=== PATIENT | female | born 1970 | race Caucasian/White ===

== ENCOUNTER 2016-12-25 11:20 | Emergency (ER) | payer SELFPAY ==
[2016-12-25 12:34] VITALS: BP 136/79
[2016-12-25] MEDS ORDERED: Albuterol/Ipratropium NEB.SOL* Albuterol 2.5 MG/Ipratropium 0.5 MG 3 ML INH ONE (13:16)
--- NOTE | 2016-12-25 13:17 | UC ---
Throat Pain/Nasal Chad HPI - HPI Summary HPI Summary: body aches chills, worsening chest congestion, sob and wheezing - History of Current Complaint Chief Complaint: UCRespiratory Stated Complaint: BODY ACHES,SINUS Time Seen by Provider: 12/25/16 13:08 Hx Obtained From: Patient Hx Last Menstrual Period: 2 WEEKS AGO ?: No Onset/Duration: Gradual Onset - over 5 days Severity: Moderate Pain Intensity: 6 Pain Scale Used: 0-10 Numeric Cough: Nonproductive Associated Signs & Symptoms: Positive: Wheezing, Sinus Discomfort, Nasal Discharge Related History: Smoking - Allergies/Home Medications Allergies/Adverse Reactions: Allergies Allergy/AdvReac Type Severity Reaction Status Date / Time Penicillins Allergy Hives Verified 12/25/16 12:25 Home Medications: Home Medications Acetaminophen [Acetaminophen Extra Stren] 2 tab PO TID PRN 12/25/16 [History Confirmed 12/25/16] Gabapentin CAP(*) [Neurontin 100 mg CAP(*)] 1 tab PO TID 12/25/16 [History Confirmed 12/25/16] Ibuprofen TAB* [Advil TAB*] 2 tab PO TID PRN 12/25/16 [History Confirmed ] oxyCODONE SR TAB(*) [Oxycontin 40 mg (*)] 1 tab PO TID PRN 12/25/16 [History Confirmed 12/25/16] PMH/Surg Hx/FS Hx/Imm Hx Previously Healthy: Yes Endocrine History Of: Denies: Diabetes, Thyroid Disease Cardiovascular History Of: Denies: Cardiac Disorders, Hypertension Respiratory History Of: Denies: COPD, Asthma GI/ History Of: Denies: Ulcer - Surgical History Surgical History: Yes Surgery Procedure, Year, and Place: 2011 Spinal Surgery - PLACEMENT OF STIMULATOR FOR BACK PAIN - FELL 10 FEET OFF A LADDER. - Family History Family History: denies cardiovascular issues in family lineage - Social History Occupation: Employed Full-time - At [employer] Lives: With Family Alcohol Use: Rare Substance Use Type: None Smoking Status (MU): Current Every Day Smoker Amount Used/How Often: 1/2 - n ppd Length of Time of Smoking/Using Tobacco: 20+ YEARS Have You Smoked in the Last Year: Yes Cessation Counseling: Counseled 3+Min - 10 Min Review of Systems Constitutional: Chills, Fatigue Skin: Negative Eyes: Negative ENT: Nasal Discharge Respiratory: Cough Cardiovascular: Negative Gastrointestinal: Negative Genitourinary: Negative Motor: Negative Neurovascular: Negative Musculoskeletal: Negative Neurological: Negative Psychological: Negative All Other Systems Reviewed And Are Negative: Yes Physical Exam Triage Information Reviewed: Yes Appearance: No Pain Distress, Well-Nourished, Ill-Appearing - mild Vital Signs: Initial Vital Signs Temp 98.2 F 12/25/16 12:28 Pulse 75 12/25/16 12:28 Resp 16 12/25/16 12:28 BP 136/79 12/25/16 12:28 Pulse Ox 100 12/25/16 12:28 Vital Signs Reviewed: Yes Eye Exam: Normal Eyes: Positive: Conjunctiva Clear ENT Exam: Normal ENT: Positive: Normal ENT inspection, Hearing grossly normal, Pharynx normal, Nasal congestion, Nasal drainage. Negative: TMs normal, Tonsillar swelling, Tonsillar exudate, Trismus, Muffled/hoarse voice Dental Exam: Normal Neck exam: Normal Neck: Positive: Supple, Nontender, No Lymphadenopathy Respiratory: Positive: Chest non-tender, No respiratory distress, No accessory muscle use, Wheezing Cardiovascular Exam: Normal Cardiovascular: Positive: RRR, No Murmur, Pulses Normal, Brisk Capillary Refill Musculoskeletal Exam: Normal Musculoskeletal: Positive: Strength Intact, ROM Intact, No Edema Neurological Exam: Normal Neurological: Positive: Alert, Muscle Tone Normal Psychological Exam: Normal Psychological: Positive: Normal Response To Family Skin Exam: Normal Throat Pain/Nasal Course/Dx - Course Assessment/Plan: prednisone, zithromax, albuterol, smoking cesation information , follow with Aniya Hollis and bottle hop - Differential Dx/Diagnosis Differential Diagnosis/HQI/PQRI: Influenza, Laryngitis, Pharyngitis, Sinusitis, URI Provider Diagnoses: bronchitis, nicotine dependant Discharge - Discharge Plan Condition: Stable Disposition: HOME Prescriptions: Albuterol HFA INHALER* [Ventolin HFA Inhaler*] 2 puff INH Q6H PRN #1 mdi PRN Reason: chest tightness/wheeze Azithromycin TAB* [Zithromax TAB (Z-SIMONE) 250 mg #6 tabs] 250 mg PO DAILY #3 tab Nicotine Inhaler* 10 mg INH Q2H PRN #1 box PRN Reason: nicotine craving predniSONE TAB* [Deltasone TAB*] 10 mg PO DAILY #18 tab Patient Education Materials: How to Stop Smoking (ED), Cigarette Smoking and Your Health (GEN), How to Use a Metered-Dose Inhaler (ED), Acute Bronchitis (ED) Forms: *Work Release Referrals: [facility] PHYSICIAN REFERRAL [Outside] - 2 Weeks No Primary Care Phys,NOPCP [Primary Care Provider] -
[2016-12-25] MEDS ORDERED: Azithromycin TAB* 250 MG PO ONE ×2 (14:01→14:02)
[2016-12-25] MEDS ORDERED: predniSONE TAB* 20 MG PO ONE ×2 (14:03)
[2016-12-25] MEDS ORDERED: Albuterol HFA INHALER* 8 gm MDI INH ONE (14:04)
== END 2016-12-25 14:35 | disposition home or self-care (01) ==
LOC: UCEAST 11:20
DX: J40 Bronchitis, not specified as acute or chronic (principal); F17.210 Nicotine dependence, cigarettes, uncomplicated
CPT/HCPCS: 87502; 99213; A9270-GY; G0463; J7512

== ENCOUNTER 2017-08-08 08:29 | Emergency (ER) | payer SELFPAY ==
[2017-08-08] MEDS ORDERED: Ketorolac INJ* 60 MG/2 ML VIAL IM ONE (09:21)
--- NOTE | 2017-08-08 10:03 | RAD ---
HISTORY: Fall, low back pain, history of spinal injury, spinal stimulator placement COMPARISONS: None TECHNIQUE: Multiple contiguous axial CT scans were obtained of the lumbar spine without intravenous contrast, with coronal and sagittal multiplanar reformations. FINDINGS: SPINAL CANAL: Evaluation of the central canal is limited on CT technique; however, there is no obvious canalicular mass or epidural hemorrhage. A spinal stimulator is noted entering below the lamina of L1 coursing superiorly posterior to the thecal sac. ALIGNMENT: The alignment is normal. VERTEBRAL BODIES: The vertebral bodies are preserved in height. The bones are normal in attenuation. JOINTS: There is no subluxation or dislocation. MUSCULATURE: Normal INTERVERTEBRAL DISCS: There is mild loss of intervertebral disc height throughout the spine. AXIAL IMAGES: T12-L1: There is no osseous neural foraminal narrowing or central canal stenosis. L1-L2: There is no osseous neural foraminal narrowing or central canal stenosis. L2-L3: There is no osseous neural foraminal narrowing or central canal stenosis. L3-L4: There is no osseous neural foraminal narrowing or central canal stenosis. L4-L5: There is no osseous neural foraminal narrowing or central canal stenosis. L5-S1: There is no osseous neural foraminal narrowing or central canal stenosis. SOFT TISSUES: The visualized soft tissues of the abdomen are unremarkable. OTHER: None IMPRESSION: 1. STATUS POST SPINAL STIMULATOR PLACEMENT. 2. NO ACUTE OSSEOUS INJURY TO THE LUMBAR SPINE. 3. NO OSSEOUS NEURAL FORAMINAL NARROWING OR CENTRAL CANAL STENOSIS.
--- NOTE | 2017-08-08 10:12 | RAD ---
HISTORY: Fall COMPARISONS: None VIEWS: 5 , Frontal, lateral, coned-down lateral sacral, and bilateral oblique views of the lumbar spine. FINDINGS: ALIGNMENT: The alignment is normal. VERTEBRAL BODIES: The vertebral body heights are normal. The interpedicular distances are normal. JOINTS: There is no subluxation or dislocation. INTERVERTEBRAL DISCS: There is mild loss of intervertebral disc height. SOFT TISSUE: Unremarkable. OTHER: The pelvis is unremarkable. The lung bases are clear. A dorsal column stimulator is noted IMPRESSION: STATUS POST SPINAL STIMULATOR PLACEMENT.
[2017-08-08 10:40] VITALS: BP 128/78
--- NOTE | 2017-08-15 08:50 | UC ---
Michelle Monteiro Nilda, scribed for Dafne Huang MD on 08/08/17 at 0907 . Back Pain HPI - HPI Summary HPI Summary: This patient is a 47 year old F presenting to [facility] with a chief complaint of constant lower back pain (aching and spasms) s/p jumping off a high platform while chasing after her dog yesterday. She has a spinal stimulatory in place from 2011 for a previous injury. The patient rates the pain very severe. Symptoms aggravated by movement and deep inspiration, and alleviated by nothing. She reports dizziness but denies pain radiating down her leg and urinary and bowel incontinence. - History of Current Complaint Chief Complaint: UCBackPain Stated Complaint: BACK PAIN Hx Obtained From: Patient Hx Last Menstrual Period: 07/08/17 Onset/Duration: Sudden Onset, Lasting Days - yesterday, Still Present Timing: Constant Severity Currently: Severe Pain Intensity: 10 Pain Scale Used: 0-10 Numeric Back Pain: Is Discrete @ - lower back Character: Aching, Spasmodic Aggravating Factor(s): Movement, Other - deep inspiration Alleviating Factor(s): Nothing Associated Signs And Symptoms: Positive: Other - dizziness and denies pain that radiates down her leg, and urinary and bowel incontinence. - Allergies/Home Medications Allergies/Adverse Reactions: Allergies Allergy/AdvReac Type Severity Reaction Status Date / Time Penicillins Allergy Hives Verified 08/08/17 08:38 PMH/Surg Hx/FS Hx/Imm Hx Previously Healthy: Yes - Surgical History Surgical History: Yes Surgery Procedure, Year, and Place: 2011 Spinal Surgery - PLACEMENT OF STIMULATOR FOR BACK PAIN - FELL 10 FEET OFF A LADDER. - Family History Known Family History: Positive: Hypertension, Diabetes Family History: denies cardiovascular issues in family lineage - Social History Alcohol Use: Rare Substance Use Type: None Smoking Status (MU): Current Every Day Smoker Amount Used/How Often: 1/2 - n ppd Length of Time of Smoking/Using Tobacco: 20+ YEARS Have You Smoked in the Last Year: Yes Review of Systems Constitutional: Negative, Fatigue Skin: Negative Eyes: Negative ENT: Negative Respiratory: Negative Cardiovascular: Negative Gastrointestinal: Negative, Other - negative bowel incontinence Genitourinary: Negative, Other - negative urinary incontinence Musculoskeletal: Arthralgia, Other: - lower back pain; negative leg pain Neurological: Negative, Other - pain radiates down buttock Psychological: Negative Is Patient Immunocompromised?: No All Other Systems Reviewed And Are Negative: Yes Physical Exam Triage Information Reviewed: Yes Appearance: Well-Nourished Vital Signs: Initial Vital Signs Temp 98.2 F 08/08/17 08:34 Pulse 99 08/08/17 08:34 Resp 16 08/08/17 08:34 BP 131/87 08/08/17 08:34 Pulse Ox 100 08/08/17 08:34 Vital Signs Reviewed: Yes Eye Exam: Normal ENT Exam: Normal Neck: Positive: Supple, Nontender Respiratory Exam: Normal - no dyspnea, no tachypnea, normal respiratory rate Respiratory: Positive: Chest non-tender, Lungs clear, Normal breath sounds Cardiovascular Exam: Normal - heart rate regular, good general skin color, good capillary refill Cardiovascular: Positive: RRR, No Murmur, Pulses Normal Abdominal Exam: Normal Abdomen Description: Positive: Nontender, No Organomegaly, Soft Bowel Sounds: Positive: Present Musculoskeletal Exam: Other - tender mid low back, with associate + spasm. no focal deformity. No b/b issues reported. Neurological Exam: Normal - nonfocal, grossly intact pain radiates down buttock. Distal sensation to LT present. No clonus. Able to ambulate but uncomfortable. Psychological Exam: Normal - conversing easily and appropiately Skin Exam: Normal - no visible or reported rash Diagnostics - Radiology CT L-Spine Radiology Interpretation Completed By: Radiologist - 1. Status post spinal stimulator placement. 2. No acute osseus injuy to the lumbar spine. 3. No osseuous neural foraminal narrowing or central canal stenosis. Physician reviewed this report and agrees. XRAY L-Spine Radiology Interpretation Completed By: Radiologist - Status post spinal stimulator placement. Physician reviewed this report and agrees. Re-Evaluation - Re-Evaluation First Eval Re-Evaluation Time: 10:29 Comment: Physician reviewed lab results with patient. Back Pain Course/Dx - Course Course Of Treatment: This patient is a 47 year old F presenting to [facility] with a chief complaint of constant lower back pain (aching and spasms) s/p jumping off a high platform while chasing after her dog yesterday. She has a spinal stimulatory in place from 2011 for a previous injury. Symptoms aggravated by movement and deep inspiration, and alleviated by nothing. She reports dizziness but denies pain radiating down her leg and urinary and bowel incontinence. CT L -Spine. Radiology Interpretation Completed By: Radiologist - 1. Status post spinal stimulator placement. 2. No acute osseus injuy to the lumbar spine. 3. No osseuous neural foraminal narrowing or central canal stenosis. Physician reviewed this report. XRAY L-Spine. Radiology Interpretation Completed By: Radiologist - Status post spinal stimulator placement. Physician reviewed this report. Patient was stable and discharged with a diagnosis of lower back strain and degenerative disc disease. Patient is agreeable with this plan. spinal stimulator in place. - Differential Dx/Diagnosis Provider Diagnoses: Lower back strain and Degenerative disc disease Discharge - Discharge Plan Condition: Stable Disposition: HOME Prescriptions: Metaxalone TAB* [Skelaxin TAB*] 800 mg PO TID PRN #30 tab PRN Reason: Spasms Patient Education Materials: Low Back Strain (ED), Degenerative Disc Disease ( ED) Forms: *Work Release Referrals: [facility]IAN REFERRAL [Outside] No Primary Care Phys,NOPCP [Primary Care Provider] - Additional Instructions: Follow up primary care phyisician as soon as you are able. Seek medical attention for worse or new problems in the meantime. The documentation as recorded by the Michelle fuchs Nilda accurately reflects the service I personally performed and the decisions made by me, Dafne Huang MD.
== END 2017-08-08 10:47 | disposition home or self-care (01) ==
LOC: UCEAST 08:29
DX: S39.012A Strain of muscle, fascia and tendon of lower back, initial encounter (principal); W17.89XA Other fall from one level to another, initial encounter; Y93.89 Activity, other specified; Y92.9 Unspecified place or not applicable; M51.36 Other intervertebral disc degeneration, lumbar region; Z96.9 Presence of functional implant, unspecified; F17.210 Nicotine dependence, cigarettes, uncomplicated
CPT/HCPCS: 72110; 72131; 99212; G0463; J1885

== ENCOUNTER 2018-01-10 11:03 | Emergency (ER) | payer SELFPAY ==
[2018-01-10 11:21] VITALS: BP 148/81
[2018-01-10] MEDS ORDERED: Acetaminophen TAB* 325 MG PO ONE (11:40)
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
--- NOTE | 2018-01-10 12:54 | RAD ---
Indication: Right lower leg leg pain 2 views of the right lower leg demonstrates no fracture. No other bone or joint abnormality is identified. IMPRESSION: No fracture of the right lower leg is noted.
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
== END 2018-01-10 13:11 | disposition home or self-care (01) ==
LOC: UCEAST 11:03
DX: T14.8XXA Other injury of unspecified body region, initial encounter (principal); V47.5XXA Car driver injured in collision with fixed or stationary object in traffic accident, initial encounter; Y92.410 Unspecified street and highway as the place of occurrence of the external cause; M50.322 Other cervical disc degeneration at C5-C6 level; F17.210 Nicotine dependence, cigarettes, uncomplicated; Z88.0 Allergy status to penicillin
CPT/HCPCS: 71046; 72020; 72040; 99212; A9270-GY; G0463

== ENCOUNTER 2018-01-15 19:10 | Emergency (ER) | payer OTHER ==
[2018-01-15 19:23] VITALS: BP 147/88
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
== END 2018-01-15 20:00 | disposition home or self-care (01) ==
LOC: UCEAST 19:10
DX: G62.9 Polyneuropathy, unspecified (principal); R03.0 Elevated blood-pressure reading, without diagnosis of hypertension; Z88.0 Allergy status to penicillin; F17.210 Nicotine dependence, cigarettes, uncomplicated
CPT/HCPCS: 99211; G0463

== ENCOUNTER 2018-05-08 13:08 | Emergency (ER) | payer OTHER ==
[2018-05-08] MEDS ORDERED: Ketorolac INJ* 60 MG/2 ML VIAL IM ONE (14:23)
[2018-05-08 15:22] VITALS: BP 123/83
--- NOTE | 2018-05-08 18:27 | ED ---
Neck Pain - HPI Summary HPI Summary: Patient is a 48-year-old female who presents emergency department for exacerbation of ongoing neck pain. Patient states she's been feeding her family doctor and neurology for neck pain and intermittent tingling to her arms. She has had CT scan of her neck which showed arthritic changes. She states they believe she may have fibromyalgia. She is a history of narcotic abuse and is currently on Suboxone. Patient states she's been taking anti- inflammatories and Neurontin. Patient denies any new injury. States she was unable to go to work today secondary to pain. Symptoms are mild in severity. Denies recent illness. Movement makes symptoms worse. Nothing makes symptoms better. - History of Current Complaint Chief Complaint: EDBackInjuryPain Stated Complaint: NECK PAIN Time Seen by Provider: 05/08/18 14:00 Hx Obtained From: Patient Hx Last Menstrual Period: 1 WEEK AGO Pain Intensity: 4 Pain Scale Used: 0-10 Numeric - Allergies/Home Medications Allergies/Adverse Reactions: Allergies Allergy/AdvReac Type Severity Reaction Status Date / Time Penicillins Allergy Rash Verified 05/08/18 13:16 PMH/Surg Hx/FS Hx/Imm Hx Previously Healthy: Yes Endocrine/Hematology History: Denies: Hx Diabetes, Hx Thyroid Disease Cardiovascular History: Denies: Hx Hypertension Respiratory History: Denies: Hx Asthma, Hx Chronic Obstructive Pulmonary Disease (COPD) GI History: Denies: Hx Ulcer - Surgical History Surgery Procedure, Year, and Place: 2011 Spinal Surgery - PLACEMENT OF STIMULATOR FOR BACK PAIN - FELL 10 FEET OFF A LADDER. Infectious Disease History: No Infectious Disease History: Denies: Hx Clostridium Difficile, Hx Hepatitis, Hx Human Immunodeficiency Virus (HIV), Hx of Known/Suspected MRSA, Hx Shingles, Hx Tuberculosis, Hx Known/ Suspected VRE, Hx Known/Suspected VRSA, History Other Infectious Disease, Traveled Outside the [place] in Last 30 Days - Family History Known Family History: Positive: Cardiac Disease - Father, Hypertension, Diabetes Family History: denies cardiovascular issues in family lineage - Social History Occupation: Employed Full-time Lives: With Family Alcohol Use: None Substance Use Type: Reports: Marijuana Smoking Status (MU): Current Every Day Smoker Type: Cigarettes Amount Used/How Often: 1 PPD Length of Time of Smoking/Using Tobacco: 20+ YEARS Have You Smoked in the Last Year: Yes Review of Systems Constitutional: Negative Negative: Fever, Chills Positive: Other - neck pain Positive: Paresthesia - intermittent to upper extremities. Currently denies. All Other Systems Reviewed And Are Negative: Yes Physical Exam Triage Information Reviewed: Yes Vital Signs On Initial Exam: Initial Vitals Temp Pulse Resp BP Pulse Ox 98.6 F 92 16 131/84 97 05/08/18 13:13 05/08/18 13:13 05/08/18 13:13 05/08/18 13:13 05/08/18 13:13 Vital Signs Reviewed: Yes Appearance: Positive: Pain Distress - Patient sitting on bed, tearful. No acute distress. Skin: Positive: Warm, Dry Head/Face: Positive: Normal Head/Face Inspection Eyes: Positive: Normal Neck: Positive: Supple, Other: - Paraspinal tenderness. No nuchal rigidity. Full range of motion with flexion, extension and rotation. Musculoskeletal: Positive: Other - 5 out of 5 strength in upper extremities. Good palpable bilateral radial pulses. Neurological: Positive: Normal, CN Intact II-III Psychiatric: Positive: Affect/Mood Appropriate Diagnostics - Vital Signs Vital Signs Temp Pulse Resp BP Pulse Ox 05/08/18 15:15 98.8 F 74 12 123/83 97 05/08/18 13:13 98.6 F 92 16 131/84 97 - Laboratory Lab Statement: Any lab studies that have been ordered have been reviewed, and results considered in the medical decision making process. Neck Course/Dx - Course Course Of Treatment: Patient presenting with ongoing neck pain. No neurological deficits. She is afebrile. She was given a dose of Toradol in the ER. Recent CT scan shows arthritic changes. Patient requesting muscle relaxer. Flexeril symptoms pharmacy. Advised warm compresses. To continue current medications. To follow-up with family doctor and neurology as scheduled. Work excuse given. Patient understands and agrees with plan. - Diagnoses Provider Diagnoses: Chronic neck pain Discharge - Sign-Out/Discharge Documenting (check all that apply): Patient Departure - Discharge Plan Condition: Good Disposition: HOME Prescriptions: Cyclobenzaprine TAB* [Flexeril 10 MG TAB*] 10 mg PO TID PRN #12 tab PRN Reason: Pain Patient Education Materials: Neck Pain (ED) Forms: *Work Release Referrals: No Primary Care Phys,NOPCP [Primary Care Provider] - Additional Instructions: Follow up with your PCP and neurology as scheduled Medication as directed Apply warm compresses to neck Return to ER if symptoms change or worsen - Billing Disposition and Condition Condition: GOOD Disposition: Home
== END 2018-05-08 15:15 | disposition home or self-care (01) ==
LOC: ED 13:08
DX: M54.2 Cervicalgia (principal); G89.29 Other chronic pain; F17.210 Nicotine dependence, cigarettes, uncomplicated
CPT/HCPCS: 96372; 99282; J1885

== ENCOUNTER 2021-03-04 11:44 | Inpatient (IN) ==
[2021-03-04 13:03] LABS: Urine Appearance Cloudy; Urine Bilirubin Negative (Negative); Urine Blood Negative (Negative); Urine Color Amber; Urine Glucose Negative (Negative); Urine Ketones Negative (Negative); Urine Nitrite Positive (Negative); Urine Protein 1+(30 mg/dL) (Negative); Urine Specific Gravity 1.025 (1.002-1.030); Urine Urobilinogen Positive (Negative)
[2021-03-04 13:11] LABS: Urine Bacteria 3+ (Absent); Urine Red Blood Cell 2+(6-10/hpf) (Absent); Urine Squamous Epithelial Cell Present (Absent); Urine White Blood Cell Trace(0-5/hpf) (Absent)
[2021-03-04 13:20] LABS: ABS Lymphocytes 1.9 10^3/ul (1.0-4.8); ABS Monocytes 0.6 10^3/ul (0-0.8); ABS Neutrophils 5.7 10^3/ul (1.5-7.7); Eosinophil % 0.3 %; Hematocrit 41 % (35-47); Hemoglobin 14.1 g/dL (12.0-16.0); Lymphocyte % 22.7 %; Mean Corpuscular HGB Conc 34 g/dL (31-36); Mean Corpuscular Hemoglobin 31 pg (27-31); Mean Corpuscular Volume 89 fL (80-97); Mean Platelet Volume 8.5 fL (7.4-10.4); Nucleated Red Blood Cells % 0.1; Platelet Count 262 10^3/uL (150-450); Red Blood Count 4.63 10^6 /uL (3.70-4.87); Red Cell Distribution Width 14 % (10-15); White Blood Count 8.3 10^3/uL (3.5-10.8)
[2021-03-04 13:23] LABS: Urine Benzodiazepine Screen None Detected (None Detect); Urine Cannabinoids Screen None Detected (None Detect); Urine Opiates Screen None Detected (None Detect)
[2021-03-04 13:34] LABS: ALT 10 U/L (7-52); AST 15 U/L (13-39); Albumin 4.7 g/dL (3.2-5.2); Albumin/Globulin Ratio 1.7 (1-3); Alkaline Phosphatase 127 U/L (34-104); Anion Gap 8 mmol/L (2-11); Blood Urea Nitrogen 16 mg/dL (6-24); CO2 Carbon Dioxide 28 mmol/L (22-32); Calcium 9.4 mg/dL (8.6-10.3); Chloride 103 mmol/L (101-111); EGFR African American 97.9 (>60); EGFR Non-African American 80.9 (>60); Globulin 2.8 g/dL (2-4); Glucose 109 mg/dL (70-100); Potassium 3.4 mmol/L (3.5-5.0); Sodium 139 mmol/L (135-145); Total Protein 7.5 g/dL (6.4-8.9)
[2021-03-04 13:40] LABS: HCG Pregnancy 8.24 mIU/mL
[2021-03-04 14:09] LABS: Alcohol, S < 10 mg/dL (<10); Salicylate < 2.50 mg/dL (<30)
[2021-03-04 14:16] LABS: Acetaminophen < 15 mcg/mL
[2021-03-04 14:23] LABS: TSH Ultra Thyroid Stim Horm 1.56 mcIU/mL (0.34-5.60)
[2021-03-04] MEDS ORDERED: Al Hydrox/Mg Hydrox/Simet LIQ 30 ML UDC PO PRN (15:28)
[2021-03-04 17:36] LABS: Cholesterol 191 mg/dL; HDL Cholesterol 57.4 mg/dL; LDL Cholesterol 116 mg/dL; Triglycerides 88 mg/dL
[2021-03-04] MEDS: Nicotine PATCH 21 MG/24 HR PATCH TRANSDERM SCH (18:06)
[2021-03-04] MEDS: Nicotine GUM 2MG FRUIT FLAVOR PO PRN (18:06)
[2021-03-05] MEDS: Nicotine PATCH 21 MG/24 HR PATCH TRANSDERM SCH (09:29)
[2021-03-05] MEDS: Vitamin THERAPEUTIC TAB PO SCH (09:30)
[2021-03-05] MEDS: Nicotine GUM 2MG FRUIT FLAVOR PO PRN ×4 (09:31→21:32)
[2021-03-05] MEDS ORDERED: DULoxetine DR 60 mg CAP PO SCH (12:00)
[2021-03-05] MEDS: Cholecalciferol (VIT D3) 1,000 unit TAB PO SCH (14:00)
[2021-03-05] MEDS: DULoxetine DR 60 mg CAP PO SCH (20:22)
[2021-03-05] MEDS: Buprenorp/Nalox 4-1 MG FILM SL FILM SCH (20:24)
[2021-03-06] MEDS: Cholecalciferol (VIT D3) 1,000 unit TAB PO SCH (09:24)
[2021-03-06] MEDS: Nicotine PATCH 21 MG/24 HR PATCH TRANSDERM SCH (09:24)
[2021-03-06] MEDS: Vitamin THERAPEUTIC TAB PO SCH (09:25)
[2021-03-06] MEDS: Nicotine GUM 2MG FRUIT FLAVOR PO PRN ×3 (09:52→20:17)
[2021-03-06] MEDS: Sulfamethox/Trimethoprim DS TAB 800/160 mg PO SCH ×2 (15:52→22:01)
[2021-03-06] MEDS: DULoxetine DR 60 mg CAP PO SCH (20:15)
[2021-03-06] MEDS: Buprenorp/Nalox 4-1 MG FILM SL FILM SCH (20:16)
[2021-03-07] MEDS: Nicotine GUM 2MG FRUIT FLAVOR PO PRN ×2 (06:55→17:46)
[2021-03-07] MEDS: Cholecalciferol (VIT D3) 1,000 unit TAB PO SCH (09:36)
[2021-03-07] MEDS: Sulfamethox/Trimethoprim DS TAB 800/160 mg PO SCH ×2 (09:37→20:07)
[2021-03-07] MEDS: Vitamin THERAPEUTIC TAB PO SCH (09:37)
[2021-03-07] MEDS: Nicotine PATCH 21 MG/24 HR PATCH TRANSDERM SCH (09:37)
[2021-03-07] MEDS: DULoxetine DR 60 mg CAP PO SCH (20:08)
[2021-03-07] MEDS: Buprenorp/Nalox 4-1 MG FILM SL FILM SCH (20:08)
[2021-03-08] MEDS: Cholecalciferol (VIT D3) 1,000 unit TAB PO SCH (08:18)
[2021-03-08] MEDS: Vitamin THERAPEUTIC TAB PO SCH (08:19)
[2021-03-08] MEDS: Sulfamethox/Trimethoprim DS TAB 800/160 mg PO SCH (08:20)
[2021-03-08] MEDS: Nicotine PATCH 21 MG/24 HR PATCH TRANSDERM SCH (08:21)
[2021-03-08] MEDS: Nicotine GUM 2MG FRUIT FLAVOR PO PRN ×2 (08:22→13:02)
[2021-03-08 08:29] VITALS: BP 124/82
[2021-03-08] MEDS ORDERED: Buprenorp/Nalox 4-1 MG FILM SL FILM SCH (13:00)
== END 2021-03-08 13:48 | disposition home or self-care (01) | DRG 773 ==
LOC: ED 11:44 → BSU 17:20
PROVIDERS: ADMIT Psychiatry & Neurology Psychiatry; ATTEND Psychiatry & Neurology Psychiatry

== ENCOUNTER 2021-12-24 01:25 | Inpatient (IN) ==
[2021-12-24] MEDS ORDERED: Lorazepam PYXIS KEY PRN ×3 (01:41→04:06)
[2021-12-24] MEDS ORDERED: LORazepam 2 mg VIAL 1 ml IM ONE (01:41)
[2021-12-24] MEDS ORDERED: LORazepam 2 mg VIAL 1 ml IV PUSH ONE (01:41)
[2021-12-24 02:05] LABS: ABS Lymphocytes 1.9 10^3/ul (1.0-4.8); ABS Monocytes 0.9 10^3/ul (0-0.8); ABS Neutrophils 7.6 10^3/ul (1.5-7.7); Eosinophil % 0.3 %; Hematocrit 40 % (35-47); Hemoglobin 13.7 g/dL (12.0-16.0); Lymphocyte % 18.5 %; Mean Corpuscular HGB Conc 34 g/dL (31-36); Mean Corpuscular Hemoglobin 31 pg (27-31); Mean Corpuscular Volume 91 fL (80-97); Mean Platelet Volume 8.5 fL (7.4-10.4); Nucleated Red Blood Cells % 0.2; Platelet Count 244 10^3/uL (150-450); Red Blood Count 4.41 10^6 /uL (3.70-4.87); Red Cell Distribution Width 14 % (10-15); White Blood Count 10.6 10^3/uL (3.5-10.8)
[2021-12-24 02:21] LABS: ALT 11 U/L (7-52); AST 13 U/L (13-39); Albumin 3.8 g/dL (3.2-5.2); Albumin/Globulin Ratio 1.8 (1-3); Alkaline Phosphatase 86 U/L (35-149); Anion Gap 6 mmol/L (2-11); Blood Urea Nitrogen 16 mg/dL (6-24); CO2 Carbon Dioxide 24 mmol/L (22-32); Calcium 8.1 mg/dL (8.6-10.3); Chloride 109 mmol/L (101-111); Creatine Kinase 92 U/L (10-223); Globulin 2.1 g/dL (2-4); Glucose 82 mg/dL (70-100); Magnesium 1.9 mg/dL (1.9-2.7); Potassium 3.4 mmol/L (3.5-5.0); Sodium 139 mmol/L (135-145); Total Protein 5.9 g/dL (6.4-8.9); eGFR CKD-EPI 101.8 (>60)
[2021-12-24 03:19] LABS: Acetaminophen < 15 mcg/mL; Alcohol, S < 13 mg/dL (<13)
[2021-12-24 03:34] LABS: TSH Ultra Thyroid Stim Horm 1.24 mcIU/mL (0.34-5.60)
[2021-12-24] MEDS ORDERED: Ondansetron 4 mg VIAL 2 MG/ML 2 ml VIAL IV PRN (04:01)
[2021-12-24] MEDS ORDERED: LORazepam 2 mg VIAL 1 ml IV PUSH PRN (04:06)
[2021-12-24 04:43] LABS: Rapid COVID-19 Molecular Undetected (Undetected)
[2021-12-24] MEDS ORDERED: Enoxaparin 40 MG/0.4 ML SYR SUBCUT SCH (06:00)
[2021-12-24] MEDS ORDERED: Potassium Chlor 20 meq TAB.ER PO ONE (06:45)
[2021-12-24 07:19] LABS: Urine Appearance Turbid; Urine Bacteria 3+ (Absent); Urine Bilirubin Negative (Negative); Urine Blood Negative (Negative); Urine Color Amber; Urine Glucose Negative (Negative); Urine Ketones Trace (Negative); Urine Nitrite Positive (Negative); Urine Protein 1+(30 mg/dL) (Negative); Urine Red Blood Cell 3+(>10/hpf) (Absent); Urine Specific Gravity 1.026 (1.002-1.030); Urine Squamous Epithelial Cell Present (Absent); Urine Transitional Epithelial Present (Absent); Urine Urobilinogen Negative (Negative); Urine White Blood Cell 3+(>20/hpf) (Absent)
[2021-12-24] MEDS ORDERED: Buprenorp/Nalox 4-1 MG FILM SL FILM SCH (09:00)
[2021-12-24] MEDS ORDERED: Cholecalciferol (VIT D3) 1,000 unit TAB PO SCH (09:00)
[2021-12-24] MEDS ORDERED: Sulfamethox/Trimethoprim DS TAB 800/160 mg PO SCH (10:00)
[2021-12-24 16:21] LABS: Urine Benzodiazepine Screen None Detected (None Detect); Urine Cannabinoids Screen None Detected (None Detect); Urine Opiates Screen None Detected (None Detect)
[2021-12-24 16:26] VITALS: BP 146/68
[2021-12-29 07:24] LABS: 7-amnioflunitrazepam LC-MS/MS Negative ng/mL (Cutoff: 10); Alpha OH Triazolam by LC-MS/MS Negative ng/mL (Cutoff: 10); Alpha-Hydroxyalprazolam LC-MS Negative ng/mL (Cutoff: 10); Alpha-OH Midazolam LC-MS/MS Negative ng/mL (Cutoff: 10); Alprazolam LC-MS/MS Negative ng/mL (Cutoff: 10); Benzodiazepines Interpretation Positive.; Chlordiazepoxide by LC-MS/MS Negative ng/mL (Cutoff: 10); Clobazam LC-MS/MS Negative ng/mL (Cutoff: 10); Lorazepam by LC-MS/MS 602 ng/mL (Cutoff: 10); Oxazepam by LC-MS/MS Negative ng/mL (Cutoff: 10); Prazepam by LC-MS/MS Negative ng/mL (Cutoff: 10); Temazepam by LC-MS/MS Negative ng/mL (Cutoff: 10); Triazolam by LC-MS/MS Negative ng/mL (Cutoff: 10); Zolpidem Phenyl-4-Carboxylic Negative ng/mL (Cutoff: 10); Zolpidem by LC-MS/MS Negative ng/mL (Cutoff: 10)
[2021-12-29 10:05] LABS: Codeine Confirmation, Urine Negative ng/mL (Cutoff: 25); Dihydrocodeine Conf, Urine Negative ng/mL (Cutoff: 25); Naloxone Confirm, Urine 1615 ng/mL (Cutoff: 25); Norhydrocodone Confirm, Urine Negative ng/mL (Cutoff: 25); Noroxycodone Confirm, Urine Negative ng/mL (Cutoff: 25); Noroxymorphone Confirm, Urine 57 ng/mL (Cutoff: 25); Opiates Interpretation, Urine Positive.; Oxycodone Confirm, Urine Negative ng/mL (Cutoff: 25); Oxymorphone Confirm, Urine Negative ng/mL (Cutoff: 25)
== END 2021-12-24 18:20 | disposition home or self-care (01) | DRG 58 ==
LOC: ED 01:25 → SUATTDRO 04:01 → EDHOLD 04:01 → MED 08:23
PROVIDERS: ADMIT Hospitalist; ATTEND Internal Medicine

== ENCOUNTER 2022-01-11 12:47 | Inpatient (IN) ==
[2022-01-11] MEDS ORDERED: Lactated Ringers 1000 ml BAG 1,000 ML IV ONE (12:53)
[2022-01-11 13:17] LABS: ABS Lymphocytes 2.2 10^3/ul (1.0-4.8); ABS Monocytes 0.5 10^3/ul (0-0.8); Eosinophil % 0.3 %; Hematocrit 42 % (35-47); Hemoglobin 14.5 g/dL (12.0-16.0); Mean Corpuscular HGB Conc 34 g/dL (31-36); Mean Corpuscular Hemoglobin 31 pg (27-31); Mean Corpuscular Volume 91 fL (80-97); Mean Platelet Volume 8.1 fL (7.4-10.4); Platelet Count 256 10^3/uL (150-450); Red Blood Count 4.63 10^6 /uL (3.70-4.87); Red Cell Distribution Width 13 % (10-15); White Blood Count 7.7 10^3/uL (3.5-10.8)
[2022-01-11 13:31] LABS: High Sens Troponin Baseline < 3 pg/mL (<15)
[2022-01-11 13:41] LABS: ALT 14 U/L (7-52); AST 17 U/L (13-39); Albumin 4.7 g/dL (3.2-5.2); Albumin/Globulin Ratio 1.9 (1-3); Alkaline Phosphatase 95 U/L (35-149); Anion Gap 5 mmol/L (2-11); Blood Urea Nitrogen 17 mg/dL (6-24); CO2 Carbon Dioxide 31 mmol/L (22-32); Calcium 10.1 mg/dL (8.6-10.3); Chloride 102 mmol/L (101-111); Globulin 2.5 g/dL (2-4); Glucose 134 mg/dL (70-100); Potassium 4.6 mmol/L (3.5-5.0); Sodium 138 mmol/L (135-145); Total Protein 7.2 g/dL (6.4-8.9); eGFR CKD-EPI 76.9 (>60)
[2022-01-11 13:51] LABS: Urine Appearance Cloudy; Urine Bilirubin Negative (Negative); Urine Blood Negative (Negative); Urine Color Yellow; Urine Glucose Negative (Negative); Urine Ketones Negative (Negative); Urine Nitrite Negative (Negative); Urine Protein Negative (Negative); Urine Specific Gravity 1.017 (1.002-1.030); Urine Urobilinogen Negative (Negative)
[2022-01-11 14:06] LABS: Urine Benzodiazepine Screen None Detected (None Detect); Urine Cannabinoids Screen None Detected (None Detect); Urine Opiates Screen None Detected (None Detect)
[2022-01-11 14:26] LABS: High Sensitivity Troponin 1 Hr < 3 pg/mL (<15)
[2022-01-11 15:20] LABS: Acetaminophen < 15 mcg/mL; Alcohol, S < 13 mg/dL (<13); Salicylate < 2.50 mg/dL (<30)
[2022-01-11] MEDS ORDERED: Nicotine GUM 2MG FRUIT FLAVOR PO PRN (22:00)
[2022-01-12] MEDS: Vitamin THERAPEUTIC TAB PO SCH (11:38)
[2022-01-12] MEDS: Nicotine PATCH 21 MG/24 HR PATCH TRANSDERM SCH (11:38)
[2022-01-13] MEDS: Nicotine PATCH 21 MG/24 HR PATCH TRANSDERM SCH (10:50)
[2022-01-13] MEDS: Vitamin THERAPEUTIC TAB PO SCH (10:50)
[2022-01-13] MEDS: buPROPion SR 100 mg TAB.SR PO SCH (11:55)
[2022-01-13] MEDS: Buprenorp/Nalox 4-1 MG FILM SL FILM SCH ×2 (11:57→21:56)
[2022-01-14 08:17] LABS: HDL Cholesterol 58.1 mg/dL
[2022-01-14] MEDS: buPROPion SR 100 mg TAB.SR PO SCH (09:18)
[2022-01-14] MEDS: Buprenorp/Nalox 4-1 MG FILM SL FILM SCH ×2 (09:19→19:11)
[2022-01-14] MEDS: Nicotine PATCH 21 MG/24 HR PATCH TRANSDERM SCH (09:20)
[2022-01-14] MEDS: Vitamin THERAPEUTIC TAB PO SCH (09:21)
[2022-01-15] MEDS: buPROPion SR 100 mg TAB.SR PO SCH (07:34)
[2022-01-15] MEDS: Vitamin THERAPEUTIC TAB PO SCH (07:34)
[2022-01-15] MEDS: Buprenorp/Nalox 4-1 MG FILM SL FILM SCH ×2 (07:34→20:10)
[2022-01-15] MEDS: Nicotine PATCH 21 MG/24 HR PATCH TRANSDERM SCH (08:35)
[2022-01-16] MEDS: buPROPion SR 100 mg TAB.SR PO SCH (08:51)
[2022-01-16] MEDS: Nicotine PATCH 21 MG/24 HR PATCH TRANSDERM SCH (08:53)
[2022-01-16] MEDS: Vitamin THERAPEUTIC TAB PO SCH (08:53)
[2022-01-16] MEDS: Buprenorp/Nalox 4-1 MG FILM SL FILM SCH ×2 (08:53→20:02)
[2022-01-16] MEDS: Al Hydrox/Mg Hydrox/Simet LIQ 30 ML UDC PO PRN ×2 (12:46→20:42)
[2022-01-16 21:00] LABS: Urine Benzodiazepine Screen None Detected (None Detect); Urine Buprenorphine Screen Presumptive Positive (None Detect); Urine Cannabinoids Screen None Detected (None Detect); Urine Fentanyl Screen None Detected (None Detect); Urine Hydrocodone Screen None Detected (None Detect); Urine Opiates Screen None Detected (None Detect)
[2022-01-17] MEDS: Al Hydrox/Mg Hydrox/Simet LIQ 30 ML UDC PO PRN ×3 (02:54→17:55)
[2022-01-17] MEDS: buPROPion SR 100 mg TAB.SR PO SCH (08:59)
[2022-01-17] MEDS: Vitamin THERAPEUTIC TAB PO SCH (08:59)
[2022-01-17] MEDS: Buprenorp/Nalox 4-1 MG FILM SL FILM SCH ×2 (09:00→19:59)
[2022-01-17] MEDS: Nicotine PATCH 21 MG/24 HR PATCH TRANSDERM SCH (09:00)
[2022-01-18] MEDS: Buprenorp/Nalox 4-1 MG FILM SL FILM SCH (07:28)
[2022-01-18] MEDS: buPROPion SR 100 mg TAB.SR PO SCH (07:28)
[2022-01-18] MEDS: Vitamin THERAPEUTIC TAB PO SCH (07:28)
[2022-01-18 08:00] VITALS: BP 103/71
[2022-01-18] MEDS: Al Hydrox/Mg Hydrox/Simet LIQ 30 ML UDC PO PRN (08:59)
[2022-01-18] MEDS ORDERED: Pneumococcal Vac 23-Polyvalent IM ONE (09:00)
[2022-01-18] MEDS ORDERED: Flu vaccine *QUAD* 2021-22* 0.5 ML SYRINGE IM ONE (09:00)
[2022-01-18] MEDS: Nicotine PATCH 21 MG/24 HR PATCH TRANSDERM SCH (09:00)
== END 2022-01-18 13:15 | disposition home or self-care (01) | DRG 885 ==
LOC: ED 12:47 → BSU 17:31
PROVIDERS: ADMIT Psychiatry & Neurology Psychiatry; ATTEND Psychiatry & Neurology Psychiatry

== ENCOUNTER 2022-02-08 11:29 | Inpatient (IN) ==
[2022-02-08 14:08] LABS: ABS Lymphocytes 1.8 10^3/ul (1.0-4.8); ABS Monocytes 0.6 10^3/ul (0-0.8); ABS Neutrophils 6.3 10^3/ul (1.5-7.7); Eosinophil % 0.1 %; Hematocrit 41 % (35-47); Hemoglobin 14.1 g/dL (12.0-16.0); Lymphocyte % 20.8 %; Mean Corpuscular HGB Conc 35 g/dL (31-36); Mean Corpuscular Hemoglobin 32 pg (27-31); Mean Corpuscular Volume 92 fL (80-97); Mean Platelet Volume 8.2 fL (7.4-10.4); Nucleated Red Blood Cells % 0.1; Platelet Count 277 10^3/uL (150-450); Red Blood Count 4.45 10^6 /uL (3.70-4.87); Red Cell Distribution Width 14 % (10-15); White Blood Count 8.8 10^3/uL (3.5-10.8)
[2022-02-08 15:04] LABS: TSH Ultra Thyroid Stim Horm 0.93 mcIU/mL (0.34-5.60)
[2022-02-08 15:08] LABS: ALT 12 U/L (7-52); AST 15 U/L (13-39); Acetaminophen < 15 mcg/mL; Albumin 4.6 g/dL (3.2-5.2); Albumin/Globulin Ratio 1.8 (1-3); Alcohol, S < 13 mg/dL (<13); Alkaline Phosphatase 105 U/L (35-149); Anion Gap 10 mmol/L (2-11); Blood Urea Nitrogen 15 mg/dL (6-24); CO2 Carbon Dioxide 26 mmol/L (22-32); Calcium 9.8 mg/dL (8.6-10.3); Chloride 107 mmol/L (101-111); Globulin 2.5 g/dL (2-4); Glucose 116 mg/dL (70-100); Potassium 3.9 mmol/L (3.5-5.0); Salicylate < 2.50 mg/dL (<30); Sodium 143 mmol/L (135-145); Total Protein 7.1 g/dL (6.4-8.9); eGFR CKD-EPI 91.1 (>60)
[2022-02-08 16:01] LABS: Urine Benzodiazepine Screen None Detected (None Detect); Urine Cannabinoids Screen None Detected (None Detect); Urine Opiates Screen None Detected (None Detect)
[2022-02-08 16:06] LABS: Urine Appearance Cloudy; Urine Bilirubin Negative (Negative); Urine Blood Negative (Negative); Urine Color Amber; Urine Glucose Negative (Negative); Urine Ketones Trace (Negative); Urine Nitrite Positive (Negative); Urine Protein Negative (Negative); Urine Specific Gravity 1.025 (1.002-1.030); Urine Urobilinogen Negative (Negative)
[2022-02-08 16:11] LABS: Urine Bacteria 1+ (Absent); Urine Red Blood Cell 2+(6-10/hpf) (Absent); Urine Squamous Epithelial Cell Present (Absent); Urine White Blood Cell 3+(>20/hpf) (Absent)
[2022-02-09] MEDS ORDERED: Cholecalciferol (VIT D3) 1,000 unit TAB PO SCH (09:00)
[2022-02-09] MEDS: Cholecalciferol (VIT D3) 1,000 unit TAB PO SCH (09:45)
[2022-02-09] MEDS: Buprenorp/Nalox 4-1 MG FILM SL FILM SCH ×2 (12:36→20:30)
[2022-02-10] MEDS: Cholecalciferol (VIT D3) 1,000 unit TAB PO SCH (07:47)
[2022-02-10] MEDS: Buprenorp/Nalox 4-1 MG FILM SL FILM SCH ×2 (07:48→20:19)
[2022-02-11] MEDS: Cholecalciferol (VIT D3) 1,000 unit TAB PO SCH (09:37)
[2022-02-11] MEDS: Buprenorp/Nalox 4-1 MG FILM SL FILM SCH ×2 (09:38→20:01)
[2022-02-12] MEDS: Cholecalciferol (VIT D3) 1,000 unit TAB PO SCH (08:31)
[2022-02-12] MEDS: Buprenorp/Nalox 4-1 MG FILM SL FILM SCH ×2 (08:32→21:12)
[2022-02-12] MEDS: Al Hydrox/Mg Hydrox/Simet LIQ 30 ML UDC PO PRN ×3 (10:32→22:10)
[2022-02-12] MEDS: CMCS: Ketoconazole 2 % CREAM (NF) 30 GM TUBE TOPICAL SCH (15:01)
[2022-02-12] MEDS ORDERED: Amoxicillin/Clavul 875/125 TAB (Augmentin 875 tab) PO SCH (21:00)
[2022-02-13] MEDS: Buprenorp/Nalox 4-1 MG FILM SL FILM SCH ×2 (08:31→20:12)
[2022-02-13] MEDS: CMCS: Ketoconazole 2 % CREAM (NF) 30 GM TUBE TOPICAL SCH (08:32)
[2022-02-13] MEDS: Cholecalciferol (VIT D3) 1,000 unit TAB PO SCH (08:32)
[2022-02-14] MEDS: Cholecalciferol (VIT D3) 1,000 unit TAB PO SCH (07:56)
[2022-02-14] MEDS: Buprenorp/Nalox 4-1 MG FILM SL FILM SCH (07:56)
[2022-02-14 08:54] VITALS: BP 97/66
== END 2022-02-14 11:27 | disposition home or self-care (01) | DRG 885 ==
LOC: ED 11:29 → BSU 15:28 → ED 17:19 → BSU 02-11 14:50
PROVIDERS: ADMIT Student in an Organized Health Care Education/Training Program; ATTEND Psychiatry & Neurology Psychiatry